=== PATIENT | male | born 1950 | race Caucasian/White ===

== ENCOUNTER 2016-07-29 10:17 | Emergency (ER) | payer OTHER ==
[2016-07-29] MEDS ORDERED: CEPHALEXIN 250 MG CAPSULE PO STA (10:53)
[2016-07-29] MEDS ORDERED: DEXAMETHASONE 10 MG/ML VIAL PO STA (10:53)
[2016-07-29] MEDS ORDERED: HYDROcod/ACETAM 5/325 MG TABLET PO STA (10:53)
[2016-07-29] MEDS ORDERED: DEXAMETHASONE 10 MG/ML VIAL ONE (11:06)
[2016-07-29] MEDS ORDERED: CHERRY SYRUP 10 ML UDC PO ONE (11:07)
[2016-07-29] MEDS ORDERED: CEPHALEXIN 250 MG CAPSULE PO ONE (11:07)
[2016-07-29] MEDS ORDERED: HYDROcod/ACETAM 5/325 MG TABLET ONE (11:08)
== END 2016-07-29 11:22 | disposition home or self-care (01) ==
DX: J02.0 Streptococcal pharyngitis (principal); I10 Essential (primary) hypertension; E78.00 Pure hypercholesterolemia, unspecified; E11.9 Type 2 diabetes mellitus without complications; Z79.84 Long term (current) use of oral hypoglycemic drugs; Z79.82 Long term (current) use of aspirin; Z79.891 Long term (current) use of opiate analgesic; Z79.899 Other long term (current) drug therapy
CPT/HCPCS: 99283; A9270

== ENCOUNTER 2016-11-16 07:56 | Outpatient (CLI) | payer OTHER ==
[2016-11-16 11:39] LABS: ALBUMIN/GLOBULIN RATIO 1.9 (1.0-2.2); BILIRUBIN,TOTAL 0.7 mg/dL (0.2-1.0); BUN - BLOOD UREA NITROGEN 13 mg/dL (6-20); CARBON DIOXIDE - CO2 26 mmol/L (21-32); CHLORIDE 104 mmol/L (101-111); CHOL/HDL RATIO 4.5 (<5.0); CHOLESTEROL 138 mg/dL; CREATININE 0.7 mg/dL (0.6-1.2); GFR - MDRD 113 (>89); GLUCOSE 104 mg/dL (70-100); HDL CHOLESTEROL 31 mg/dL; SODIUM 139 mmol/L (135-145); TOTAL PROTEIN 6.7 g/dL (6.7-8.2); TRIGLYCERIDES 232 mg/dL; VLDL CHOLESTEROL 46 mg/dL
[2016-11-16 11:45] LABS: PSA FREE 0.53 ng/mL (0.16-2.81)
[2016-11-16 11:46] LABS: PSA TOTAL 2.8 ng/mL (0.000-2.000)
[2016-11-16 12:57] LABS: HEMOGLOBIN A1C 0.64 g/dL
== END 2016-11-16 07:57 | disposition home or self-care (01) ==
LOC: LAB.F 07:56
PROVIDERS: ATTEND Family Medicine
DX: E11.9 Type 2 diabetes mellitus without complications (principal); E29.1 Testicular hypofunction; I10 Essential (primary) hypertension; E78.5 Hyperlipidemia, unspecified; R97.20 Elevated prostate specific antigen [PSA]; E03.9 Hypothyroidism, unspecified
CPT/HCPCS: 36415; 80053; 80061; 83036; 84154; 84403; 84443

== ENCOUNTER 2017-06-19 07:35 | Outpatient (CLI) | payer OTHER ==
[2017-06-19 11:46] LABS: ALBUMIN/GLOBULIN RATIO 1.4 (1.0-2.2); BILIRUBIN,TOTAL 0.4 mg/dL (0.2-1.0); BUN - BLOOD UREA NITROGEN 12 mg/dL (6-20); CALCIUM 8.9 mg/dL (8.5-10.3); CARBON DIOXIDE - CO2 26 mmol/L (21-32); CHLORIDE 102 mmol/L (101-111); CHOLESTEROL 166 mg/dL; CREATININE 0.7 mg/dL (0.6-1.2); GFR - MDRD 113 (>89); GLUCOSE 105 mg/dL (70-100); HDL CHOLESTEROL 42 mg/dL; LDL/HDL RATIO 1.9 (<3.6); SODIUM 138 mmol/L (135-145); TOTAL PROTEIN 6.6 g/dL (6.7-8.2); TRIGLYCERIDES 222 mg/dL; VLDL CHOLESTEROL 44 mg/dL
[2017-06-19 11:48] LABS: HEMOGLOBIN A1C 0.63 g/dL
== END 2017-06-19 07:36 | disposition home or self-care (01) ==
LOC: LAB.F 07:35
PROVIDERS: ATTEND Family Medicine
DX: E03.9 Hypothyroidism, unspecified (principal); E29.1 Testicular hypofunction; I10 Essential (primary) hypertension; E78.5 Hyperlipidemia, unspecified
CPT/HCPCS: 36415; 80053; 80061; 83036; 84443

== ENCOUNTER 2018-01-21 07:37 | Outpatient (CLI) | payer OTHER ==
[2018-01-21 13:06] LABS: PSA FREE 0.43 ng/mL (0.16-2.81)
[2018-01-21 13:07] LABS: PSA TOTAL 2.58 ng/mL (0.000-2.000)
[2018-01-21 13:11] LABS: ALBUMIN 3.9 g/dL (3.2-5.5); ALBUMIN/GLOBULIN RATIO 1.4 (1.0-2.2); ALKALINE PHOSPHATASE 71 IU/L (42-121); ALT ALANINE AMINOTRANSFERASE 30 IU/L (10-60); AST ASPARTATE AMINOTRANSFERASE 26 IU/L (10-42); BILIRUBIN,TOTAL 0.7 mg/dL (0.2-1.0); BUN - BLOOD UREA NITROGEN 12 mg/dL (6-20); CALCIUM 8.8 mg/dL (8.5-10.3); CARBON DIOXIDE - CO2 27 mmol/L (21-32); CHLORIDE 106 mmol/L (101-111); CHOL/HDL RATIO 3.9 (<5.0); CHOLESTEROL 132 mg/dL; CREATININE 0.8 mg/dL (0.6-1.2); GFR - MDRD 97 (>89); GLUCOSE 123 mg/dL (70-100); HDL CHOLESTEROL 34 mg/dL; LDL CHOLESTEROL,CALCULATED 66 mg/dL; LDL/HDL RATIO 1.9 (<3.6); SODIUM 139 mmol/L (135-145); TOTAL PROTEIN 6.6 g/dL (6.7-8.2); VLDL CHOLESTEROL 32 mg/dL
[2018-01-21 13:22] LABS: HB2 TOTAL 14.4 g/dL; HEMOGLOBIN A1C 0.6 g/dL
== END 2018-01-21 07:38 | disposition home or self-care (01) ==
LOC: LAB.F 07:37
PROVIDERS: ATTEND Family Medicine
DX: E03.9 Hypothyroidism, unspecified (principal); E11.9 Type 2 diabetes mellitus without complications; E29.1 Testicular hypofunction; I10 Essential (primary) hypertension; E78.5 Hyperlipidemia, unspecified; R97.20 Elevated prostate specific antigen [PSA]
CPT/HCPCS: 36415; 80053; 80061; 82043; 83036; 83721; 84154

== ENCOUNTER 2022-11-07 08:55 | Outpatient (CLI) | payer MEDICARE, OTHER ==
[2022-11-07 15:46] LABS: CREATININE,URINE 209.4 mg/dL; MICROALBUM/CREATININE RATIO,UR 7.2 ug/mg (<30.0); MICROALBUMIN,URINE 1.5 mg/dL (0-300.0)
[2022-11-07 15:48] LABS: THYROID STIMULATING HORMONE 2.12 uIU/mL (0.34-5.60)
[2022-11-07 15:49] LABS: ALBUMIN 4.1 g/dL (3.2-5.5); ALBUMIN/GLOBULIN RATIO 1.5 (1.0-2.2); ALKALINE PHOSPHATASE 78 IU/L (42-121); ALT ALANINE AMINOTRANSFERASE 34 IU/L (10-60); AST ASPARTATE AMINOTRANSFERASE 29 IU/L (10-42); BILIRUBIN,TOTAL 0.6 mg/dL (0.2-1.0); BUN - BLOOD UREA NITROGEN 16 mg/dL (6-20); CALCIUM 8.8 mg/dL (8.5-10.3); CARBON DIOXIDE - CO2 22 mmol/L (21-32); CHLORIDE 106 mmol/L (101-111); CHOL/HDL RATIO 3.8 (<5.0); CHOLESTEROL 110 mg/dL; CREATININE 0.9 mg/dL (0.6-1.2); GFR - MDRD 83 (>89); GLUCOSE 188 mg/dL (70-100); HDL CHOLESTEROL 29 mg/dL; LDL CHOLESTEROL,CALCULATED 19 mg/dL; LDL/HDL RATIO 0.7 (<3.6); SODIUM 137 mmol/L (135-145); TOTAL PROTEIN 6.8 g/dL (6.7-8.2); TRIGLYCERIDES 312 mg/dL; VLDL CHOLESTEROL 62 mg/dL
[2022-11-07 15:52] LABS: FREE T4 (FREE THYROXINE) 1.05 ng/dL (0.58-1.64)
[2022-11-07 17:38] LABS: ESTIMATED AVERAGE GLUCOSE 137 mg/dL (70-100); HEMOGLOBIN A1c% 6.4 % (4.27-6.07)
== END 2022-11-07 08:56 | disposition home or self-care (01) ==
LOC: LAB.S 08:55
PROVIDERS: ATTEND Family Medicine
DX: Z00.00 Encounter for general adult medical examination without abnormal findings (principal); E03.8 Other specified hypothyroidism; E11.9 Type 2 diabetes mellitus without complications; I10 Essential (primary) hypertension
CPT/HCPCS: 36415; 80053; 80061; 82043; 82570; 82607; 83036; 83721; 84153; 84439; 84443

== ENCOUNTER 2023-12-20 18:16 | Emergency (ER) | payer MEDICARE, OTHER ==
[2023-12-20 18:51] LABS: BASOPHILS % (AUTO) 0.3 %; EOSINOPHILS # (AUTO) 0.1 10^3/uL (0.0-0.7); EOSINOPHILS % (AUTO) 1.4 %; HCT - HEMATOCRIT 37.6 % (42.0-52.0); HGB - HEMOGLOBIN 12.1 g/dL (14.0-18.0); LYMPHOCYTES # (AUTO) 1.3 10^3/uL (1.5-3.5); LYMPHOCYTES % (AUTO) 20.3 %; MEAN CORPUSCULAR HEMOGLOBIN 30.5 pg (27.0-31.0); MEAN CORPUSCULAR HGB CONC 32.2 g/dL (32.0-36.0); MEAN CORPUSCULAR VOLUME 94.7 fL (80.0-94.0); MEAN PLATELET VOLUME 9.8 fL (7.4-11.4); MONOCYTES # (AUTO) 0.4 10^3/uL (0.0-1.0); MONOCYTES % (AUTO) 6.2 %; NEUTROPHILS # (AUTO) 4.5 10^3/uL (1.5-6.6); NEUTROPHILS % (AUTO) 71.3 %; PLT - PLATELET COUNT 231 10^3/uL (130-450); RED BLOOD COUNT 3.97 10^6/uL (4.70-6.10); RED CELL DISTRIBUTION WIDTH 12.7 % (12.0-15.0); WHITE BLOOD COUNT 6.3 x10^3/uL (4.8-10.8)
[2023-12-20 19:06] LABS: ALBUMIN 3.6 g/dL (3.2-5.5); ALBUMIN/GLOBULIN RATIO 1.4 (1.0-2.2); BILIRUBIN,TOTAL 0.3 mg/dL (0.2-1.0); CALCIUM 8.8 mg/dL (8.5-10.3); CREATININE 0.6 mg/dL (0.6-1.3); TOTAL PROTEIN 6.2 g/dL (6.4-8.9)
--- NOTE | 2023-12-20 19:06 | ED Physician Documentation ---
PD HPI ALTERED MENTAL STATUS - Stated complaint Stated Complaint: CONFUSION - Chief complaint Chief Complaint: Neuro - Additional information Additional information: 73-year-old male with history of hypertension, hypercholesterolemia, type 2 diabetes, colon polyps, recent rotator cuff surgery repair couple weeks ago presents emergency department via ALS coming from Dr. Loja office for further evaluation of confusion that has now fully resolved. Patient reports that he awoke confused and this worried his which led to the patient presenting to urgent care for further evaluation. At urgent care patient was unable to tell the date or the year which is abnormal for the patient since being here in the emergency department he appears to be back at baseline he is alert and oriented x 4 knows date time no focal neurological deficits unilateral weakness or other concerning neurological symptoms or concerns. No urinary urgency or frequency no recent fevers or chills. No history of this happening before no history of [place]'s Alzheimer's or dementia. PD PAST MEDICAL HISTORY - Past Medical History Past Medical History: Yes Cardiovascular: Hypertension, High cholesterol Endocrine/Autoimmune: Type 2 diabetes GI: Colon polyps - Past Surgical History Past Surgical History: Yes General: Colonoscopy Ortho: Shoulder arthroplasty, Other - Present Medications Home Medications: Ambulatory Orders Medication Instructions Recorded Confirmed Aspirin Chewable [[place] 81 mg PO DAILY 03/25/13 07/29/16 Aspirin] Metoprolol Tartrate [Lopressor] 100 mg PO BID 03/25/13 07/29/16 Olmesartan/Hydrochlorothiazide 1 each PO DAILY 03/25/13 07/29/16 [Benicar Hct 40-25 mg Tablet] Simvastatin 40 mg PO DAILY 03/25/13 07/29/16 metFORMIN [Glucophage] 500 mg PO BIDWM 03/26/13 07/29/16 Hydrocodone/Acetaminophen [[place] 1 each PO Q6H PRN #15 tablet 07/29/16 5-325 Tablet] cephALEXin [Keflex] 500 mg PO QID #24 capsule 07/29/16 dexAMETHasone [Decadron] 4 mg PO DAILY #5 tablet 07/29/16 - Allergies Allergies/Adverse Reactions: Allergies Allergy/AdvReac Type Severity Reaction Status Date / Time No Known Drug Allergies Allergy Verified 12/20/23 18:31 - Social History Does the pt smoke?: No Smoking Status: Never smoker Does the pt drink ETOH?: Yes Does the pt have substance abuse?: No - Immunizations Immunizations are current?: No Immunizations: TDAP >10years/unknown PD ED PE NORMAL - Vitals Vital signs reviewed: Yes - General General: Alert and oriented X 3, No acute distress, Well developed/nourished - HEENT HEENT: Atraumatic, PERRL, EOMI, Ears normal, Moist mucous membranes - Neck Neck: Supple, no meningeal sign, No bony TTP - Cardiac Cardiac: RRR - Respiratory Respiratory: No respiratory distress - Abdomen Abdomen: Normal bowel sounds - Back Back: No CVA TTP - Derm Derm: Normal color, Warm and dry, No rash - Extremities Extremities: No edema, No calf tenderness / cord - Neuro Neuro: Alert and oriented X 3, 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 No: Confused, Disoriented, Nystagmus, Aphasia, Dysarthria Results - Vitals Vitals: Vital Signs - 24 hr 12/20/23 12/20/23 18:26 21:05 Temperature 36.5 C 36.7 C Heart Rate 80 76 Respiratory 16 15 Rate Blood Pressure 169/89 H 148/94 H O2 Saturation 97 100 Oxygen O2 Source Room air - EKG (time done) 1933 EKG releavant findings:: EKG personally interpreted by author of this note. Relevant findings are: Rate: Rate (enter#) (78) Rhythm: NSR Marshall: Normal Intervals: Normal PA QRS: Normal Ischemia: Normal ST segments Computer interpretation: Agree with computer - Labs Labs: Laboratory Tests 12/20/23 12/20/23 18:47 18:47 WBC 6.3 RBC 3.97 L Hgb 12.1 L Hct 37.6 L MCV 94.7 H MCH 30.5 MCHC 32.2 RDW 12.7 Plt Count 231 MPV 9.8 Neut # (Auto) 4.5 Lymph # (Auto) 1.3 L Weld # (Auto) 0.4 Eos # (Auto) 0.1 Baso # (Auto) 0.0 Absolute Nucleated RBC 0.00 Nucleated RBC % 0.0 Sodium 138 Potassium 4.0 Chloride 106 Carbon Dioxide 24 Anion Gap 8.0 BUN 11 Creatinine 0.6 Estimated GFR (MDRD) 132 Glucose 179 H Calcium 8.8 Total Bilirubin 0.3 AST 18 ALT 15 Alkaline Phosphatase 97 Total Protein 6.2 L Albumin 3.6 Globulin 2.6 Albumin/Globulin Ratio 1.4 Lipase 21 PD Medical Decision Making - ED course ED course: 73-year-old male presents emergency department for episode of confusion that has now fully resolved. CT head is complete for further evaluation of possible intracranial hemorrhage or other sort of acute abnormalities or findings and CT head came back within normal limits. Labs are also complete for further evaluation he has very mild anemia hemoglobin 12.1 no electrolyte abnormalities no hyponatremia no kidney failure acute kidney injury. Patient was offered hospitalization for further workup of this episode of confusion for possible inpatient MRI but he kindly declined and said that he would like to follow-up with his primary care provider outpatient on Saturday. There is a possibility that he did experience a TIA he is already on aspirin as well as cholesterol medication patient was stressed the importance that if the symptoms get worse or come back at all to please come back to the emergency department immediately for further evaluation. I believe at this point in time that he is safe for discharge all questions have been answered strict return precautions given to patient as well as his . Departure - Departure Disposition: 01 Home, Self Care Clinical Impression: Confusion Instructions: TIA Comments: Thank you for trusting us with your care. I am not entirely sure what is caused this episode of confusion that you experienced at home today although it is possible that you could have had a TIA also known as a mini stroke. We have completed a head CT and not found any acute abnormalities or findings at this point in time. We also completed some labs which again do not reveal any acute abnormalities or findings. We offered hospitalization but you preferred to follow-up with your primary care provider for further evaluation of this. You can call our medical records department to have all paperwork sent to your primary care provider first thing Saturday I would call them Saturday to let them know about today's ER visit to see if you are able to get in with them as soon as possible. Again please have a very low threshold to come back to the emergency department if the symptoms come back or get any worse if you start to develop any weakness on one side your body, slurred speech, vision changes, or any other neurological changes. Wishing you a speedy recovery and please again have a very low threshold to come back to the emergency department for further evaluation. PT NAME: JULI OLIVERA MR#: [id number] REG ER/ED AGE: 73 CI DT/TM: 12/20/23 PCP: Scotty Peraza MD : 1950 ATT: SEX: M ORD: Rebecca Schuler [facility] DR[facility] EXAM: [id number] CT/HEADWO ([id number]) PROCEDURE: Head WO INDICATIONS: confusion TECHNIQUE: Noncontrast 4.5 mm thick angled axial sections acquired from the foramen magnum to the vertex. For radiation dose reduction, the following was used: automated exposure control, adjustment of mA and/or kV according to patient size. COMPARISON: None. FINDINGS: Image quality: Excellent. CSF spaces: Basal cisterns are patent. No extra-axial fluid collections. Ventricles are normal in size and shape. Brain: No midline shift. No intracranial masses or hemorrhage. [place]-white matter interface is normal. Skull and face: Calvarium and visualized facial bones are intact, without suspicious lesions. Sinuses: Visualized sinuses and mastoids are clear. IMPRESSION: No acute intracranial pathology. Reviewed by: Celine Mcmahon MD on 12/20/2023 7:32 PM PDT Approved by: Celine Mcmahon MD on 12/20/2023 7:32 PM PDT Station ID: [id number] Report Electronically Signed by Celine Mcmahon MD [id number]/20/[id number] cc: Scotty Peraza MD; Rebecca Woods DNP Forms: PCP List Discharge Date/Time: 12/20/23 21:12
--- NOTE | 2023-12-20 19:34 | CT Report ---
PROCEDURE: Head WO INDICATIONS: confusion TECHNIQUE: Noncontrast 4.5 mm thick angled axial sections acquired from the foramen magnum to the vertex. For r adiation dose reduction, the following was used: automated exposure control, adjustment of mA and/or kV according to patient size. COMPARISON: None. FINDINGS: Image quality: Excellent. CSF spaces: Basal cisterns are patent. No extra-axial fluid collections. Ventricles are normal in size and shape. Brain: No midline shift. No intracranial masses or hemorrhage. [place]-white matter interface is norm al. Skull and face: Calvarium and visualized facial bones are intact, without suspicious lesions. Sinuses: Visualized sinuses and mastoids are clear. IMPRESSION: No acute intracranial pathology. Reviewed by: Celine Mcmahon MD on 12/20/2023 7:32 PM PDT Approved by: Celine Mcmahon MD on 12/20/2023 7:32 PM PDT Station ID: [id number]
[2023-12-20 21:14] VITALS: BP 148/94; O2SAT 100
== END 2023-12-20 21:12 | disposition home or self-care (01) ==
LOC: EDUNIT# → ED 18:16
DX: R41.0 Disorientation, unspecified (principal)
CPT/HCPCS: 36415; 80053; 83690; 85025; 93005; 99283; 99284